=== PATIENT | female | born 1980 | race Two or more races ===

== ENCOUNTER → 2021-05-21 | Emergency (ER) | payer OTHER ==
[~2021-05-21] VITALS: Ht 180.3 cm; Wt 81.6 kg
[~2021-05-21] MED LIST: CORLANOR7.5 MG PO; TOPROL XL25 M1 PO
== END | disposition home or self-care (01) ==
LOC: ER 16:42
DX: B34.9 Viral infection, unspecified (principal); B96.0 Mycoplasma pneumoniae [M. pneumoniae] as the cause of diseases classified elsewhere; Z11.52 Encounter for screening for COVID-19

== ENCOUNTER 2021-12-10 00:18 | Emergency (ER) | payer OTHER ==
[~2021-12-10] VITALS: Ht 177.8 cm; Wt 74.8 kg
== END 2021-12-10 06:17 | disposition home or self-care (01) ==
LOC: ER 00:18 → CPU-OBS 00:56 → ER 06:17
DX: R07.89 Other chest pain (principal); R00.2 Palpitations